=== PATIENT | male | born 1980 | race Caucasian/White ===

== ENCOUNTER 2024-01-09 03:54 | Emergency (ER) | payer OTHER, SELFPAY ==
[2024-01-09] VITALS (8 sets, daily range): BP systolic 131–145; BP diastolic 91–102; BMI 33.8
[2024-01-09 04:48] LABS: % Basophils 0.4 % (0-2); % Eosinophils 3.4 % (0-6); % Immature Granulocytes 0.3 % (0-0.5); % Lymphocytes 35.6 % (20.5-51.1); % Monocytes 8.7 % (1.7-9.3); % Neutrophils 51.6 % (42.2-75.2); Absolute Eosinophils 0.3 10^3/uL (0-0.7); Absolute Lymphocytes 2.7 10^3/uL (1.2-3.4); Absolute Monocytes 0.7 10^3/uL (0.1-0.6); Absolute Neutrophils 3.8 10^3/uL (1.4-6.5); Hematocrit 39.4 % (39.0-52.0); Hemoglobin 14.6 g/dL (13.0-18.0); Mean Corp Hgb Conc. 37.1 g/dL (33.0-37.0); Mean Corpuscular Hgb 30.7 pg (27.0-31.0); Mean Corpuscular Volume 82.9 fL (80.0-94.0); Mean Platelet Volume 10.6 fL (7.4-10.4); Nucleated Red Blood Cells % 0 % (-); Platelet Count 208 10^3/uL (130-400); Red Blood Cell Count 4.75 10^6/uL (4.70-6.10); White Blood Cell Count 7.4 10^3/uL (4.8-10.8)
[2024-01-09 05:09] LABS: ALT (SGPT) 60 U/L (0-50); AST (SGOT) 38 U/L (17-59); Albumin 4.3 g/dl (3.5-5.0); Alkaline Phosphatase 102 U/L (38-126); Blood Urea Nitrogen 19 mg/dl (9-20); Calcium 9.5 mg/dl (8.4-10.2); Carbon Dioxide 24 mmol/L (22-30); Chloride 107 mmol/L (98-107); Estimated Creatinine Clearance 95 ml/min; Glucose 194 mg/dl (70-99); Potassium 3.8 mmol/L (3.5-5.1); Sodium 137 mmol/L (135-145); Total Bilirubin 0.4 mg/dl (0.2-1.3); eGFR > 60.00
[2024-01-09 05:12] LABS: Troponin I < 0.012 ng/ml
--- NOTE | 2024-01-09 06:23 | ED.GENMED ---
History of Present Illness
General
Chief Complaint: Breathing Problem
Source: patient and spouse
Time Seen by Provider: 01/09/24 06:12
Travel History
Have you had any contact with someone who has COVID-19?: No
Do you have any symptoms of coronavirus? Fever > 100 degrees, chills, cough, shortness of breath, sore throat, loss of taste or smell, muscle aches, or headache?: No
History of Present Illness
History of Present Illness:
43-year-old male presents emergency department with complaints of going to bed feeling his usual self, but awakened at approximately 3 AM feeling like he could not get his air and associated with 'pressure' in his central chest area. Since 3 AM,
his symptoms have markedly improved, he no longer has breathing difficulties, and he has what he describes as a 'very light' remaining chest pressure. He denies associated diaphoresis, nausea, vomiting, fever, chills, hemoptysis, cough, sore
throat, rhinorrhea, back pain, neck pain, headache, dizziness. Patient denies a pleuritic component to the chest discomfort. Chest discomfort is without radiation, exacerbating, relieving factors. Patient returned from the [facility]
approximately 2 weeks ago. He noted bilateral leg swelling when he arrived there, saw his doctor in follow-up, had labs drawn which were unremarkable. He feels that the lower extremity edema is symmetric and is gradually resolving.
Past History
Past History
ED Past Medical History: HTN and Hypercholesterolemia
ED Past Surgical History: Orthopedic
Social History
Tobacco: Smoker
Alcohol: Occasional
Drug: None
Personal:
Living: with family
Phy Exam
Physical Exam
Physical Exam:
GENERAL: Alert , in no apparent distress
EYE: pupils equal and reactive
NECK: Supple, no significant adenopathy.
ENT: o/p clr, mmm.
CARDIAC: Regular rate and rhythm .
LUNGS: Clear breath sounds bilaterally, no acute respiratory distress, no wheezes/rales/rhonchi
ABDOMEN: Soft, without focal tenderness, no r/g, no cvat
NEUROLOGICAL: Alert and oriented, no focal neuro deficits
SKIN: Warm and dry, skin intact.
MUSCULOSKELETAL: Very trace bilateral lower extremity symmetrical edema, well perfused.
PSYCH: Normal and appropriate interaction.
Scores
Heart Failure Risk
Heart Failure Risk Score: Not Applicable
Course
Orders/Labs/Results
Orders:
Orders
01/09/24 04:09
EKG [Electrocardiogram (*1)] Urgent
Reason for Study: Shortness of Breath
01/09/24 04:10
EKG- Treatment ONCE
01/09/24 04:38
Cardiac Monitoring- Treatment ONCE
O2 Therapy [RESP] Urgent
Titrate/Wean O2 to maintain O2 sat greater than (%): 90
Special Instructions: Maintain sats >/=90%
Pulse Ox/spot Check [RESP] Urgent
Quantity: 1
Special Instructions: ON ROOM AIR
01/09/24 04:39
CR Chest - 2 Views Urgent
Comment:
Reason For Exam: chest pain / sob
01/09/24 04:42
Complete Blood Count/With Diff Urgent
Comprehensive Metabolic Panel Urgent
Troponin I Urgent
01/09/24 06:24
D-Dimer Stat
01/09/24 08:05
Troponin I Urgent
Abnormal Lab Results
01/09/24
04:42
MCHC 37.1 H g/dL
(33.0-37.0)
MPV 10.6 H fL
(7.4-10.4)
Absolute Monos (auto) 0.7 H 10^3/uL
(0.1-0.6)
Glucose 194 H mg/dl
(70-99)
ALT 60 H U/L
(0-50)
01/09/24 04:42
01/09/24 04:42
Vital Signs
Initial and Last Documented VS:
Initial Vital Signs
Temp Pulse Resp BP Pulse Ox
97.7 F 83 16 145/102 97
01/09/24 03:57 01/09/24 03:57 01/09/24 03:57 01/09/24 03:57 01/09/24 03:57
Last Documented Vital Signs
Temp Pulse Resp BP Pulse Ox
97.7 F 76 18 142/91 93
01/09/24 03:57 01/09/24 08:15 01/09/24 08:15 01/09/24 08:03 01/09/24 08:15
*Critical Care Note
Total Time (30-74mins, 75-104mins- exclusive of procedures): Not Applicable
Update Note
Update Note:
Patient presents to the Emergency Department with chest pain and dyspnea___
Number and Complexity of Problems Addressed at the Encounter
� Chronic conditions affecting care:
� Acute Exacerbation and/or Progression of Chronic Illness:
� Differential Diagnosis includes: But not limited to PE, ACS, anxiety, pneumonia, pericarditis, etc.
Amount and/or Complexity of Data to be Reviewed and Analyzed
� I performed an independent evaluation of and my interpretation is:
EKG: Read by me, normal sinus rhythm, normal rate, normal axis, no acute ischemia
CT:
Xrays:
Laboratory Studies: Unremarkable
Other:
� Review of other/old records reveals:
� Clinical information was obtained by an independent historian: who is bedside
� Prescriptions/Medications Considered but not given:
� Further testing considered but not performed:
Risk of Complications and/or Morbidity or Mortality of Patient Management
� Social determinants of health affecting care:
� Discussion with other providers (PCP, Hospitalists, Consultants, etc):
� Escalation of care including admission/observation vs risk of discharge considered: 8:58 AM upon reassessment, patient without symptoms. He took a long nap here, and feels well. Highly doubt ACS, PE, dissection, etc. given
lack of 'red flag' findings and history physical or workup. Does not describe the pain as ripping or tearing, does not radiate to the back, D-dimer normal, no tachycardia or tachypnea noted, etc. Patient referred for close follow-up and reasons to
return to the ER.
ED Attending Note
-
Portions of this chart may have been created with voice recognition software.� Occasional wrong word or��sound alike� substitutions may have occurred due to the inherent limitations of voice recognition software.
Discharge Plan
Departure
Patient Disposition: Home (Routine Discharge)
Date of Disposition: 01/09/24
Time of Disposition: 08:56
Patient with high blood pressure during this ER visit?: Yes
Condition: Good
Discharge Problem:
Dyspnea, Chest pain
Instructions: Shortness of Breath (Dyspnea) (DC), Chest Pain (DC), BLOOD PRESSURE
Prescriptions:
No Action
losartan 50 mg Tablet
50 mg PO DAILY
rosuvastatin 5 mg Tablet
5 mg PO DAILY
amlodipine
1 tab PO DAILY
Referrals:
Sylvester Landon, DO [Family Provider] - Follow up in 2-3 days
Activity Restrictions/Additional Instructions:
IF YOU DEVELOP RECURRENT OR NEW PAIN, RECURRENT TROUBLE BREATHING, FEVER, DIZZINESS, SWELLING, BLEEDING, VOMITING, OR OTHER WORRISOME SIGNS, PLEASE RETURN TO THE ER IMMEDIATELY.
Interventions
Interventions:
*Risk Screen - Suicide Last Done: 01/09/24 03:57
*General Assessment Last Done: 01/09/24 03:57
*Neglect/Abuse Screening Last Done: 01/09/24 03:57
ED- Fall Risk Assessment Last Done: 01/09/24 07:12
*ED COVID-19 Vaccine History Last Done: 01/09/24 03:57
ED- Cardiac Assessment Last Done: 01/09/24 07:12
ED- Pulmonary Assessment Last Done: 01/09/24 07:12
Discharge Date and Time
Print Language: MALTESE
[2024-01-09 07:45] LABS: D-Dimer 0.38 ug/mlFEU (0.00-0.50)
[2024-01-09 08:40] LABS: Troponin I < 0.012 ng/ml
== END 2024-01-09 09:32 | disposition home or self-care (01) ==
LOC: EMR 03:54
PROVIDERS: Emergency Medicine; EMERGENCY PHYSICIAN Emergency Medicine; FAMILY PHYSICIAN Family Medicine
DX: R06.00 Dyspnea, unspecified (principal); R07.89 Other chest pain; M79.89 Other specified soft tissue disorders; I10 Essential (primary) hypertension; E78.00 Pure hypercholesterolemia, unspecified; F17.200 Nicotine dependence, unspecified, uncomplicated
CPT/HCPCS: 99285; 94760; 71046; 80053; 84484; 85025; 85379; 93005

== ENCOUNTER → 2024-10-21 07:54 | Outpatient (REF) | payer OTHER, SELFPAY | LOC: HWRAD 07:54 | PROVIDERS: ATTENDING PHYSICIAN Physician Assistant Medical | DX: R74.8 Abnormal levels of other serum enzymes (principal) | CPT/HCPCS: 76700 ==